=== PATIENT | male | born 1935 | race Caucasian/White ===

== ENCOUNTER → 2017-05-25 | Outpatient (CLI) | payer OTHER, MEDICARE ==
[~2017-05-25] VITALS: Ht 167.6 cm; Wt 106.6 kg
[~2017-05-25] MED LIST: ACID CONTROL150 MG PO; AMITRIPTYLINE H75 MG PO; AMLODIPINE BESY10 MG PO; ASPIR 8181 M1 PO; FENOFIBRATE145 M1 PO; GLUCOTROL XL5 MG PO; LOVASTATIN40 MG PO; METOPROLOL TART75 MG PO; MIRALAX119 GM PO; MIRAPEX0.25 MG PO; ONE DAILY TABL1 EACH PO; TRIAMTERENE-HC1 EAC1 PO
== END | disposition home or self-care (01) ==
LOC: AMB 09:14
PROVIDERS: Internal Medicine Gastroenterology
DX: K80.50 Calculus of bile duct without cholangitis or cholecystitis without obstruction (principal); K86.2 Cyst of pancreas; I10 Essential (primary) hypertension; E11.9 Type 2 diabetes mellitus without complications; K21.9 Gastro-esophageal reflux disease without esophagitis; Z79.82 Long term (current) use of aspirin
CPT/HCPCS: 74328; 82948; 87081; 88160; C1726; C1757; C1769; J0330; J0461; J1170; J2250; J2405

== ENCOUNTER 2017-06-01 11:20 | Emergency (ER) | payer OTHER, MEDICARE ==
[~2017-06-01] VITALS: Ht 172.7 cm; Wt 104.5 kg
[~2017-06-01 11:20] MED LIST changes: +METOPROLOL TART50 MG PO; -METOPROLOL TART75 MG PO
[2017-06-01 11:51] LABS: BASOPHIL (%) 0.7 % (0-1); BASOPHIL COUNT 0.1 K/uL (0-0.1); EOSINOPHIL (%) 2.9 % (0-5); EOSINOPHIL COUNT 0.2 K/uL (0-0.3); HEMATOCRIT 41.9 % (38.0-50.0); LYMPHOCYTE COUNT 1.9 K/uL (1.0-2.8); MCH 28.2 PG (29.0-34.0); MCHC 33.4 G/DL (30.0-36.0); MCV 84.3 FL (86-99); MONOCYTE (%) 10.5 % (3-12); MONOCYTE COUNT 0.9 K/uL (0-0.8); NEUTROPHIL (%) 61.9 % (45-76); NEUTROPHIL COUNT 5.1 K/uL (1.8-6.4); PLATELET COUNT 265 K/uL (156-360); RBC DIS.WIDTH-CV 14.2 % (11.8-14.6); RBC DIS.WIDTH-SD 43.8 % (39-53); RED BLOOD COUNT 4.97 M/uL (4.00-5.50); WHITE BLOOD COUNT 8.3 K/uL (4.1-10.2)
[2017-06-01 12:02] LABS: ALBUMIN 4.1 g/dL (3.2-4.8); CHLORIDE 101 mEq/L (99-109); POTASSIUM 3.4 mEq/L (3.7-5.4); SODIUM 137 mEq/L (136-147)
[2017-06-01 12:04] LABS: GLUCOSE 120 mg/dL (70-99)
[2017-06-01 12:05] LABS: TOTAL PROTEIN 7.4 g/dL (6.4-8.3)
[2017-06-01 12:06] LABS: TOTAL BILIRUBIN 0.3 mg/dL (0.0-1.0)
[2017-06-01 12:08] LABS: ALKALINE PHOSPHATASE 53 IU/L (3-129); CREATININE 1.5 mg/dL (0.6-1.3); GFR ESTIMATE (CALCULATED) 48 mL/min/ (58.99-99999)
[2017-06-01 12:09] LABS: UREA NITROGEN (BUN) 24 mg/dL (9-23)
[2017-06-01 12:10] LABS: AST (GOT) 21 IU/L (2-34)
[2017-06-01 12:11] LABS: ALT (GPT) 28 IU/L (3-49); LIPASE 19 U/L (1.0-51.0)
[2017-06-01] MEDS ORDERED: TRAMADOL HCL50 MG PO (15:40)
[2017-06-01 17:10] VITALS: BP 115/97
== END 2017-06-01 17:11 | disposition home or self-care (01) ==
LOC: EME 11:20
PROVIDERS: Emergency Medicine
DX: K80.20 Calculus of gallbladder without cholecystitis without obstruction (principal); K76.0 Fatty (change of) liver, not elsewhere classified; N18.9 Chronic kidney disease, unspecified; F03.90 Unspecified dementia, unspecified severity, without behavioral disturbance, psychotic disturbance, mood disturbance, and anxiety; Z79.82 Long term (current) use of aspirin; Z79.84 Long term (current) use of oral hypoglycemic drugs; Z85.9 Personal history of malignant neoplasm, unspecified; Z90.49 Acquired absence of other specified parts of digestive tract
CPT/HCPCS: 74177; 80053; 81003; 83690; 85025; 99281; 99285; J7030

== ENCOUNTER → 2017-06-06 | Outpatient (CLI) | payer MEDICARE ==
[~2017-06-06] MED LIST changes: +TRAMADOL HCL50 MG PO
== END | disposition home or self-care (01) ==
LOC: CDC 13:59
DX: Z01.810 Encounter for preprocedural cardiovascular examination (principal); K80.10 Calculus of gallbladder with chronic cholecystitis without obstruction; I47.1 Supraventricular tachycardia; I45.4 Nonspecific intraventricular block; R94.31 Abnormal electrocardiogram [ECG] [EKG]
CPT/HCPCS: 93000

== ENCOUNTER 2017-06-12 10:06 | Day surgery (SDC) | payer OTHER, MEDICARE ==
[~2017-06-12] VITALS: Ht 168.9 cm; Wt 103.4 kg
[2017-06-12 10:47] VITALS: BP 137/85
[2017-06-12] MEDS ORDERED: NORCO 5/3251 TABLET PO (13:13)
[2017-06-12 14:23] VITALS: BP 119/73
[2017-06-12 15:23] VITALS: BP 128/72
[2017-06-12 17:24] VITALS: BP 122/74
== END 2017-06-12 18:07 | disposition home or self-care (01) ==
LOC: SDC
PROVIDERS: Surgery
DX: K80.10 Calculus of gallbladder with chronic cholecystitis without obstruction (principal); K66.0 Peritoneal adhesions (postprocedural) (postinfection); E66.9 Obesity, unspecified; Z68.36 Body mass index [BMI] 36.0-36.9, adult; K86.2 Cyst of pancreas; Z85.828 Personal history of other malignant neoplasm of skin; I12.9 Hypertensive chronic kidney disease with stage 1 through stage 4 chronic kidney disease, or unspecified chronic kidney disease; E11.22 Type 2 diabetes mellitus with diabetic chronic kidney disease; N18.9 Chronic kidney disease, unspecified; E78.5 Hyperlipidemia, unspecified; Z79.82 Long term (current) use of aspirin; Z79.84 Long term (current) use of oral hypoglycemic drugs; Z96.649 Presence of unspecified artificial hip joint; Z96.659 Presence of unspecified artificial knee joint; Z83.3 Family history of diabetes mellitus; Z82.49 Family history of ischemic heart disease and other diseases of the circulatory system; Z82.69 Family history of other diseases of the musculoskeletal system and connective tissue
CPT/HCPCS: 81003; 82948; 88304; J0131; J1170; J2405; J2710; J3010; S0020; S0074

== ENCOUNTER 2017-11-06 15:31 | Observation (INO) | payer OTHER, MEDICARE ==
[~2017-11-06] VITALS: Ht 172.7 cm; Wt 104.5 kg
[~2017-11-06 15:31] MED LIST changes: +NORCO 5/3251 TABLET PO
[2017-11-06 16:16] LABS: HEMATOCRIT 45.9 % (38.0-50.0); HEMOGLOBIN 15.3 G/DL (12.5-16.6); MCH 28.1 PG (29.0-34.0); MCHC 33.3 G/DL (30.0-36.0); MCV 84.4 FL (86-99); PLATELET COUNT 226 K/uL (156-360); RBC DIS.WIDTH-CV 14.9 % (11.8-14.6); RBC DIS.WIDTH-SD 45.3 % (39-53); RED BLOOD COUNT 5.44 M/uL (4.00-5.50); WHITE BLOOD COUNT 6.7 K/uL (4.1-10.2)
[2017-11-06 16:28] LABS: ALBUMIN 4.4 g/dL (3.2-4.8)
[2017-11-06 16:29] LABS: CHLORIDE 104 mEq/L (99-109); POTASSIUM 4.3 mEq/L (3.7-5.4); SODIUM 142 mEq/L (136-147)
[2017-11-06 16:31] LABS: GLUCOSE 141 mg/dL (70-99); TOTAL PROTEIN 7.4 g/dL (6.4-8.3)
[2017-11-06 16:33] LABS: TOTAL BILIRUBIN 0.5 mg/dL (0.0-1.0)
[2017-11-06 16:34] LABS: ALKALINE PHOSPHATASE 40 IU/L (3-129)
[2017-11-06 16:35] LABS: CREATININE 1.7 mg/dL (0.6-1.3); GFR ESTIMATE (CALCULATED) 42 mL/min/ (58.99-99999)
[2017-11-06 16:36] LABS: AST (GOT) 21 IU/L (2-34); UREA NITROGEN (BUN) 19 mg/dL (9-23)
[2017-11-06 16:38] LABS: ALT (GPT) 18 IU/L (3-49)
[2017-11-06 20:07] LABS: LIPASE 13 U/L (1.0-51.0)
[2017-11-06 23:55] LABS: APPEARANCE SL.HAZY ((CLEAR)); BILIRUBIN NEGATIVE; BLOOD LARGE; COLOR YELLOW ((YELLOW)); GLUCOSE (STRIP) NEGATIVE; KETONES NEGATIVE; LEUKOCYTES NEGATIVE; NITRITE NEGATIVE; PROTEIN (STRIP) NEGATIVE; SPECIFIC GRAVITY 1.025 (1.000-1.030); UROBILINOGEN 0.2 MG/DL (0.2-1.0)
[2017-11-07 01:28] LABS: BACTERIA NONE SEEN /HPF; EPITHELIAL CELLS RARE /HPF; MUCUS NONE SEEN /LPF; UCUL ADDED? YES
[2017-11-07] MEDS ORDERED: CIPRO500 MG PO (01:58)
[2017-11-07 08:33] VITALS: BP 118/75
[2017-11-07 12:54] VITALS: BP 120/66
[2017-11-07 16:05] VITALS: BP 130/80
[2017-11-07] MEDS ORDERED: LOPRESSOR100 M1 PO (17:08)
[2017-11-07] MEDS ORDERED: MYCOSTATIN15 GM PO (17:11)
[2017-11-07 20:11] VITALS: BP 112/58
[2017-11-07 23:55] VITALS: BP 124/78
[2017-11-08 03:20] VITALS: BP 115/70
[2017-11-08 05:57] LABS: BASOPHIL (%) 0.5 % (0-1); EOSINOPHIL (%) 1.8 % (0-5); EOSINOPHIL COUNT 0.1 K/uL (0-0.3); HEMATOCRIT 41.8 % (38.0-50.0); IMMATURE GRANULOCYTE (%) 0.2 % (0.0-0.7); LYMPHOCYTE (%) 34.8 % (15-42); LYMPHOCYTE COUNT 1.9 K/uL (1.0-2.8); MCH 27.1 PG (29.0-34.0); MCHC 31.6 G/DL (30.0-36.0); MCV 85.8 FL (86-99); MONOCYTE (%) 9.1 % (3-12); MONOCYTE COUNT 0.5 K/uL (0-0.8); NEUTROPHIL (%) 53.6 % (45-76); PLATELET COUNT 192 K/uL (156-360); RBC DIS.WIDTH-CV 14.9 % (11.8-14.6); RBC DIS.WIDTH-SD 46.9 % (39-53); RED BLOOD COUNT 4.87 M/uL (4.00-5.50); WHITE BLOOD COUNT 5.6 K/uL (4.1-10.2)
[2017-11-08 05:59] LABS: HEMOGLOBIN 13.2 G/DL (12.5-16.6)
[2017-11-08 06:13] LABS: ALBUMIN 3.8 G/DL (3.2-4.8); ALKALINE PHOSPHATASE 31 IU/L (3-129); ALT (GPT) 13 IU/L (3-49); AST (GOT) 18 IU/L (2-34); CHLORIDE 104 MEQ/L (99-109); CREATININE 1.3 MG/DL (0.6-1.3); GFR ESTIMATE (CALCULATED) 57 mL/min/ (58.99-99999); POTASSIUM 3.9 MEQ/L (3.7-5.4); SODIUM 140 MEQ/L (136-147); TOTAL BILIRUBIN 0.4 MG/DL (0.0-1.0); TOTAL PROTEIN 6.1 G/DL (6.4-8.3); UREA NITROGEN (BUN) 15 mg/dL (9-23)
[2017-11-08 06:20] LABS: GLUCOSE 59 mg/dL (70-99)
[2017-11-08 08:00] VITALS: BP 107/74
[2017-11-08 11:35] VITALS: BP 125/74
[2017-11-08 12:35] LABS: HEMOGLOBIN A1c (GLYCOHEMOGLOB) 6.7 % (Below 5.7)
[2017-11-08 15:54] VITALS: BP 127/67
[2017-11-08 19:37] VITALS: BP 116/71
[2017-11-08 23:47] VITALS: BP 137/83
[2017-11-09 05:41] LABS: BASOPHIL (%) 0.6 % (0-1); EOSINOPHIL (%) 2.2 % (0-5); EOSINOPHIL COUNT 0.2 K/uL (0-0.3); HEMATOCRIT 41.7 % (38.0-50.0); HEMOGLOBIN 13.3 G/DL (12.5-16.6); IMMATURE GRANULOCYTE (%) 0.3 % (0.0-0.7); LYMPHOCYTE (%) 31.6 % (15-42); LYMPHOCYTE COUNT 2.2 K/uL (1.0-2.8); MCH 27.3 PG (29.0-34.0); MCHC 31.9 G/DL (30.0-36.0); MCV 85.6 FL (86-99); MONOCYTE (%) 8.1 % (3-12); MONOCYTE COUNT 0.6 K/uL (0-0.8); NEUTROPHIL (%) 57.2 % (45-76); PLATELET COUNT 185 K/uL (156-360); RBC DIS.WIDTH-SD 47.3 % (39-53); RED BLOOD COUNT 4.87 M/uL (4.00-5.50); WHITE BLOOD COUNT 6.9 K/uL (4.1-10.2)
[2017-11-09 06:07] LABS: ALBUMIN 3.8 G/DL (3.2-4.8); ALKALINE PHOSPHATASE 30 IU/L (3-129); ALT (GPT) 14 IU/L (3-49); AST (GOT) 20 IU/L (2-34); CHLORIDE 106 MEQ/L (99-109); CREATININE 1.2 MG/DL (0.6-1.3); GFR ESTIMATE (CALCULATED) > 59 mL/min/ (58.99-99999); GLUCOSE 58 mg/dL (70-99); POTASSIUM 3.6 MEQ/L (3.7-5.4); SODIUM 142 MEQ/L (136-147); TOTAL BILIRUBIN 0.4 MG/DL (0.0-1.0); TOTAL PROTEIN 6.4 G/DL (6.4-8.3); UREA NITROGEN (BUN) 13 mg/dL (9-23)
[2017-11-09 08:10] VITALS: BP 126/78
[2017-11-09 08:52] VITALS: BP 126/78
[2017-11-09] MEDS ORDERED: JANUVIA100 MG PO (12:22)
[2017-11-09] MEDS ORDERED: TAMSULOSIN HCL0.4 MG PO (12:22)
== END 2017-11-09 13:48 | disposition home or self-care (01) ==
LOC: EME 15:31 → 4SOUTH 11-07 05:01 → EDOF 11-07 05:01 → ENRESERV 11-07 05:05 → 4SOUTH 11-07 08:07
PROVIDERS: Hospitalist; Internal Medicine
DX: R10.31 Right lower quadrant pain (principal); R10.32 Left lower quadrant pain; R33.9 Retention of urine, unspecified; I12.9 Hypertensive chronic kidney disease with stage 1 through stage 4 chronic kidney disease, or unspecified chronic kidney disease; N18.3 Chronic kidney disease, stage 3 (moderate); E11.22 Type 2 diabetes mellitus with diabetic chronic kidney disease; R31.29 Other microscopic hematuria; R11.0 Nausea; R00.0 Tachycardia, unspecified; M79.7 Fibromyalgia; E78.5 Hyperlipidemia, unspecified; Z90.49 Acquired absence of other specified parts of digestive tract; Z96.653 Presence of artificial knee joint, bilateral; Z96.641 Presence of right artificial hip joint; Z66 Do not resuscitate
CPT/HCPCS: 72100; 74177; 80053; 81003; 82948; 83036; 83605; 83690; 85025; 85027; 87086; 99281; 99285; G0378; G8978 GP CH; G8979 GP CH; G8980 GP CH; G8987 GO CH; G8988 GO CH; G8989 GO CH; J1644; J1815; J2270; J2405; J7030